=== PATIENT | female | born 1975 | race Caucasian/White ===

== ENCOUNTER 2017-02-06 14:56 | Emergency (ER) | payer MEDICAID ==
[~2017-02-06] VITALS: Ht 162.6 cm; Wt 113.4 kg
[2017-02-06 15:15] VITALS: BP 130/70; PULSE 84; RESP 16; TEMP 97.4; O2SAT 99
[2017-02-06] MEDS ORDERED: KETOROLAC TROMETHAMINE 60 MG/2 ML VIAL IM ONE (15:30)
--- NOTE | 2017-02-06 15:45 | NUR ---
Patient to ER bed 6 to gown for evaluation. Side rails up. Report given to TUSHAR BURTON.
[2017-02-06 15:49] LABS: BASOPHILS # (AUTO) 0.1 K/uL (0.0-0.2); BASOPHILS % (AUTO) 1.2 % (0.0-2.0); EOSINOPHILS # (AUTO) 0.1 K/uL (0.0-0.4); EOSINOPHILS % (AUTO) 2.2 % (0.0-4.0); HEMATOCRIT 40.8 % (36-48); HEMOGLOBIN 13.6 g/dL (12.0-16.0); LYMPHOCYTES # (AUTO) 2.9 K/uL (1.0-5.5); LYMPHOCYTES % (AUTO) 51.3 % (20.5-51.5); MEAN CORPUSCULAR HEMOGLOBIN 28 pg (27-31); MEAN CORPUSCULAR HGB CONC 33 % (32-36); MEAN CORPUSCULAR VOLUME 84 fL (79.0-98.0); MONOCYTES # (AUTO) 0.6 K/uL (0.0-1.0); NEUTROPHILS % (AUTO) 35.3 % (40.0-70.0); PLATELET COUNT (AUTO) 304 K/uL (130-430); RED BLOOD CELL COUNT(AUTO) 4.87 MIL/uL (4.2-6.2); RED CELL DISTRIBUTION WIDTH 12.8 % (9.0-15.0); WHITE BLOOD COUNT (AUTO) 5.7 K/uL (4.8-10.8)
--- NOTE | 2017-02-06 15:50 | NUR ---
Pt came into the ER in stable condition. Pt c/o right lower abd pain 06/07 that is radiating to right flank. Pt stated that she had her appendix taken out on 10/2016 and right abd pain began 3 wks ago and has been worsening,especially yesterday. Pt stated that her abd pain feels like something is pushing against her back. -N/V/D -sob -chest pain.
[2017-02-06 16:02] LABS: BILIRUBIN,URINE NEGATIVE (NEGATIVE); CALCIUM 8.6 mg/dL (8.4-11.0); CLARITY/URINE CLEAR (CLEAR); COLOR,URINE YELLOW (YELLOW); CREATININE 0.96 mg/dL (0.55-1.30); GLUCOSE,URINE NEGATIVE (NEGATIVE); KETONES,URINE NEGATIVE (NEGATIVE); LEUKOCYTE ESTERASE ,URINE TRACE (NEGATIVE); NITRITE, URINE NEGATIVE (NEGATIVE); POTASSIUM 3.7 mmol/L (3.5-5.1); PROTEIN URINE NEGATIVE (NEGATIVE); UROBILINOGEN,URINE 0.2 (0.2-1.0)
[2017-02-06 16:08] LABS: ALBUMIN 3.4 g/dL (3.4-4.8); TOTAL BILIRUBIN 0.2 mg/dL (0.0-1.0); TOTAL PROTEIN, SERUM 7.8 g/dL (6.4-8.3)
[2017-02-06 16:09] LABS: BLOOD, URINE TRACE (NEGATIVE)
[2017-02-06 16:33] LABS: BACTERIA,URINE FEW /HPF (None Seen)
--- NOTE | 2017-02-06 16:38 | NUR ---
ER at bedside examining patient.
[2017-02-06 18:17] VITALS: BP 130/70; PULSE 84; RESP 16; TEMP 97.4; O2SAT 99
--- NOTE | 2017-02-06 18:17 | NUR ---
Patient given written and verbal discharge instructions and verbalizes understanding. ER MD Phillips discussed with patient the results and treatment provided. Patient in stable condition. ID arm band removed. Rx of Macrobid and Ibuprofen 600 given. Patient educated on pain management and to follow up with PMD. Pain Scale 2/10. Opportunity for questions provided and answered.
== END 2017-02-06 18:17 | disposition home or self-care (01) ==
LOC: SED 14:56
DX: N83.201 Unspecified ovarian cyst, right side (principal); N39.0 Urinary tract infection, site not specified
CPT/HCPCS: 36415; 74176; 76830; 76857; 80053; 81000; 81025; 82150; 83690; 85025; 96372; 99285; J1885

== ENCOUNTER 2017-09-27 16:17 | Emergency (ER) | payer MEDICAID ==
[~2017-09-27] VITALS: Ht 172.7 cm; Wt 117.9 kg
[2017-09-27 16:25] VITALS: BP_SYST 142
[2017-09-27] MEDS ORDERED: DIAZEPAM 10 MG/2 ML DISP.SYRIN IM ONE (16:45)
[2017-09-27] MEDS ORDERED: OXYCODONE/ACETAMINOPHEN *10*mg/325 mg TABLET PO ONE (16:45)
[2017-09-27] MEDS ORDERED: KETOROLAC TROMETHAMINE 60 MG/2 ML VIAL IM ONE (16:45)
[2017-09-27 16:53] LABS: BILIRUBIN,URINE NEGATIVE (NEGATIVE); CLARITY/URINE SL HAZY (CLEAR); COLOR,URINE YELLOW (YELLOW); GLUCOSE,URINE NEGATIVE (NEGATIVE); KETONES,URINE NEGATIVE (NEGATIVE); LEUKOCYTE ESTERASE ,URINE TRACE (NEGATIVE); NITRITE, URINE NEGATIVE (NEGATIVE); PH,URINE 5.5 (5.0-8.0); PROTEIN URINE NEGATIVE (NEGATIVE); UROBILINOGEN,URINE 0.2 (0.2-1.0)
[2017-09-27 16:54] LABS: BLOOD, URINE TRACE (NEGATIVE)
[2017-09-27 17:04] LABS: BACTERIA,URINE FEW /HPF (None Seen)
[2017-09-27 17:05] LABS: MUCUS,URINE 1+ /LPF (None Seen)
[2017-09-27] MEDS ORDERED: OXYCODONE/ACETAMINOPHEN 5-325 TABLET PO ONE (17:45)
[2017-09-27 18:12] VITALS: BP_SYST 140
== END 2017-09-27 18:12 | disposition home or self-care (01) ==
LOC: SED 16:17
DX: S39.012A Strain of muscle, fascia and tendon of lower back, initial encounter (principal); N39.0 Urinary tract infection, site not specified; R03.0 Elevated blood-pressure reading, without diagnosis of hypertension; Z90.89 Acquired absence of other organs; E66.9 Obesity, unspecified; Z68.39 Body mass index [BMI] 39.0-39.9, adult; X58.XXXA Exposure to other specified factors, initial encounter; Y93.89 Activity, other specified; Y92.89 Other specified places as the place of occurrence of the external cause; Y99.8 Other external cause status
CPT/HCPCS: 81000; 81025; 87086; 96372; 99284; J1885; J3360

== ENCOUNTER 2019-10-30 18:41 | Emergency (ER) | payer MEDICAID ==
[~2019-10-30] VITALS: Ht 167.6 cm; Wt 117.9 kg
[2019-10-30 19:47] VITALS: BP_SYST 109
--- NOTE | 2019-10-30 19:49 | NUR ---
Patient triaged and placed in waiting room. VSS and patient appears in no acute distress at this time. Accompanied by self, awaiting available bed, and MD notified of need for MSE.
--- NOTE | 2019-10-30 20:49 | NUR ---
Patient to ER hallway bed for evaluation. Side rails up. Report given to TUSHAR Isaac
--- NOTE | 2019-10-30 20:51 | NUR ---
Patient complains of pain to lower back, right hip, and down right leg s/p fall. Patient states she missed 4 steps and fell down the stairs. Pt denies KO. Pt is ambulatory but with some assistance due to pain. Pt also complains that her right hand goes numb even when writing. No deformities noted, no discoloration noted. NO other injries/complaint per patient or noted.
--- NOTE | 2019-10-30 21:30 | NUR ---
ER Dr. Owen at bedside examining patient.
[2019-10-30] MEDS ORDERED: KETOROLAC TROMETHAMINE 60 MG/2 ML VIAL IM ONE (21:45)
[2019-10-30 22:30] VITALS: BP_SYST 116
--- NOTE | 2019-10-30 22:30 | NUR ---
Patient given written and verbal discharge instructions and verbalizes understanding. ER MD discussed with patient the results and treatment provided. Patient in stable condition. ID arm band removed. Rx of Motrin, Medrol Dosepak, and Robaxin given. Patient educated on pain management and to follow up with PMD. Pain Scale 0. Opportunity for questions provided and answered. Medication side effect fact sheet provided.
== END 2019-10-30 22:30 | disposition home or self-care (01) ==
LOC: SED 18:41
DX: M54.41 Lumbago with sciatica, right side (principal)
CPT/HCPCS: 72100; 96372; 99283; J1885

== ENCOUNTER 2019-12-21 09:20 | Emergency (ER) | payer MEDICAID ==
[~2019-12-21] VITALS: Ht 167.6 cm; Wt 117.9 kg
[2019-12-21 09:20] VITALS: BP_SYST 119
--- NOTE | 2019-12-21 10:25 | NUR ---
Patient to ER bed 8 to gown for evaluation. Side rails up.
[2019-12-21] MEDS ORDERED: KETOROLAC TROMETHAMINE 60 MG/2 ML VIAL IM ONE (10:30)
--- NOTE | 2019-12-21 10:30 | NUR ---
ER at bedside examining patient.
--- NOTE | 2019-12-21 10:30 | NUR ---
pt came for chest pain and congestion. 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
[2019-12-21 11:58] VITALS: BP_SYST 137
--- NOTE | 2019-12-21 11:58 | NUR ---
Patient given written and verbal discharge instructions and verbalizes understanding. ER MD discussed with patient the results and treatment provided. Patient in stable condition. ID arm band removed. Rx of TAMIFLU, MOTRIN given. Patient educated on pain management and to follow up with PMD. Pain Scale 0/10. Opportunity for questions provided and answered. Medication side effect fact sheet provided.
== END 2019-12-21 11:58 | disposition home or self-care (01) ==
LOC: SED 09:20
DX: R07.89 Other chest pain (principal); B34.9 Viral infection, unspecified; Z87.42 Personal history of other diseases of the female genital tract
CPT/HCPCS: 71045; 81002; 93005; 96372; 99283; J1885

== ENCOUNTER 2021-01-17 14:04 | Emergency (ER) | payer MEDICAID ==
[~2021-01-17] VITALS: Ht 167.6 cm; Wt 108.9 kg
[2021-01-17 14:05] VITALS: BP_SYST 120
[2021-01-17] MEDS ORDERED: ASPIRIN 325 MG TABLET PO ONE (14:30)
[2021-01-17 15:15] LABS: BASOPHILS % (AUTO) 0.5 % (0.0-2.0); EOSINOPHILS # (AUTO) 0.1 K/uL (0.0-0.4); EOSINOPHILS % (AUTO) 1.9 % (0.0-4.0); HEMATOCRIT 40.7 % (36-48); HEMOGLOBIN 13.6 g/dL (12.0-16.0); LYMPHOCYTES # (AUTO) 2.7 K/uL (1.0-5.5); MEAN CORPUSCULAR HEMOGLOBIN 29 pg (27-31); MEAN CORPUSCULAR HGB CONC 34 % (32-36); MEAN CORPUSCULAR VOLUME 87 fL (79.0-98.0); MONOCYTES # (AUTO) 0.3 K/uL (0.0-1.0); MONOCYTES % (AUTO) 8.3 % (1.7-9.3); NEUTROPHILS % (AUTO) 24.3 % (40.0-70.0); PLATELET COUNT (AUTO) 246 K/uL (130-430); RED CELL DISTRIBUTION WIDTH 13.5 % (9.0-15.0); WHITE BLOOD COUNT (AUTO) 4.2 K/uL (4.8-10.8)
[2021-01-17 15:47] LABS: POTASSIUM 3.7 mmol/L (3.5-5.1); SODIUM SERUM 138 mmol/L (136-145)
[2021-01-17 15:48] LABS: ANION GAP 10 (5-15); CALCIUM 9.1 mg/dL (8.4-11.0); CHLORIDE 104 mmol/L (98-107); CREATININE 0.92 mg/dL (0.55-1.30); GFR AFRICAN AMERICAN 85 mL/min (>90); GLUCOSE 104 mg/dL (70-99); UREA NITROGEN, BLOOD 18 mg/dL (8-21)
[2021-01-17 16:18] LABS: THYROID STIMULATING HORMONE 0.26 uIu/mL (0.34-4.82)
[2021-01-17 17:26] VITALS: BP_SYST 112
== END 2021-01-17 17:29 | disposition home or self-care (01) ==
LOC: SED 14:04
DX: R07.89 Other chest pain (principal); R53.83 Other fatigue; M79.18 Myalgia, other site; E11.9 Type 2 diabetes mellitus without complications; Z20.822 Contact with and (suspected) exposure to COVID-19
CPT/HCPCS: 36415; 71045; 71275; 76376; 80048; 84443; 84484; 85025; 85379; 93005; 99285; U0003